=== PATIENT | male | born 1935 | race Caucasian/White ===

== ENCOUNTER 2018-03-13 19:27 | Observation (INO) | payer MEDICARE ==
[~2018-03-13] VITALS: Ht 165.1 cm; Wt 74.0 kg
[~2018-03-13 19:27] MED LIST: FOL1 PO; GLIPIZIDE5 PO; GLU5 PO; GLU500 PO; METFORMIN500 MG PO; PAN; PAN PO; PRE5 PO; PROS5 PO; SYMBICORT; VIT B12; VIT D; ZES20 PO; [UNRECOGNIZED DRUG - REMARK]
[2018-03-13 19:49] VITALS: Ht 165.1 cm; Wt 74.0 kg
[2018-03-13 20:44] LABS: PLATELET COUNT 144 x10^3mcL (130-400)
[2018-03-13 20:47] LABS: BASOPHIL % 0 % (0-2); RED CELL DISTRIBUTION WIDTH 16.3 % (11.5-14.5)
[2018-03-13 20:52] LABS: CALCIUM 9.2 mg/dL (8.5-10.1); CARBON DIOXIDE 28.1 mmol/L (21-32); CHLORIDE SERUM 100 mmol/L (98-107); CREATININE SERUM 1.2 mg/dL (0.7-1.3); GLUCOSE SERUM 178 mg/dL (74-106); POTASSIUM SERUM 4.7 mmol/L (3.5-5.1); SODIUM SERUM 135 mmol/L (136-145)
[2018-03-13 20:56] LABS: ALBUMIN 3.8 g/dL (3.4-5.0); ALKALINE PHOSPHATASE 55 U/L (46-116); ALT/SGPT 30 U/L (16-63); AST/SGOT 30 U/L (15-37); BILIRUBIN TOTAL 0.4 mg/dL (0.20-1.00); CHOLESTEROL 171 mg/dL (<200); TOTAL PROTEIN, SERUM 6.6 g/dL (6.4-8.2)
[2018-03-13 20:57] LABS: HDL CHOLESTEROL 67 mg/dL (40-60)
[2018-03-13] MEDS ORDERED: METFORMIN HCL1000 MG PO (22:06)
[2018-03-13] MEDS ORDERED: CREON PO (22:07)
[2018-03-13] MEDS ORDERED: FOL1 PO (22:07)
[2018-03-13] MEDS ORDERED: GLUCOTROL5 MG PO (22:08)
[2018-03-13] MEDS ORDERED: PREDNISONE2.5 MG PO (22:08)
[2018-03-13] MEDS ORDERED: PROS5 PO (22:08)
[2018-03-13 23:26] VITALS: BP 140/77
[2018-03-14 00:42] LABS: UA SPECIFIC GRAVITY 1.025 (1.005-1.035); microscopic required? YES; urine erythrocyte TRACE (NEGATIVE)
[2018-03-14 05:19] VITALS: BP 140/69
[2018-03-14 09:43] VITALS: BP 130/63
[2018-03-14 13:35] VITALS: BP 142/63
[2018-03-14 17:20] VITALS: BP 140/53
[2018-03-14 21:38] VITALS: BP 118/61
[2018-03-15 06:23] VITALS: BP 136/71
[2018-03-15 08:12] VITALS: BP 131/52
[2018-03-15] MEDS ORDERED: ZITHROMAX250 MG PO (08:24)
[2018-03-15 09:05] VITALS: BP 136/71
[2018-03-24] MEDS ORDERED: METFORMIN HCL1000 MG PO (22:43)
[2018-03-24] MEDS ORDERED: NATURE'S BLEND F1 MG PO (22:44)
[2018-03-24] MEDS ORDERED: FINASTERIDE5 M1 PO (22:45)
[2018-03-24] MEDS ORDERED: GLUCOTROL5 MG (22:46)
[2018-03-24] MEDS ORDERED: ALBUTEROL SULFAT3 ML (22:46)
[2018-03-24] MEDS ORDERED: SYMBICORT1 AE3 IH (22:46)
[2018-03-24] MEDS ORDERED: ATRUD (22:47)
[2018-03-25] MEDS ORDERED: PREDNISONE20 MG PO (12:36)
== END 2018-03-15 09:52 | disposition home or self-care (01) | DRG 189 ==
LOC: ED 19:27 → DU 21:58
PROVIDERS: Emergency Medicine; ADMIT Internal Medicine
DX: J96.01 Acute respiratory failure with hypoxia (principal); J44.1 Chronic obstructive pulmonary disease with (acute) exacerbation; J20.9 Acute bronchitis, unspecified; E11.9 Type 2 diabetes mellitus without complications; N40.0 Benign prostatic hyperplasia without lower urinary tract symptoms; Z79.84 Long term (current) use of oral hypoglycemic drugs
CPT/HCPCS: 87804; G0378; J0456; J0696; J1650; J2920; J2930; J7030; J7613; Q0092

== ENCOUNTER 2018-03-24 18:55 | Inpatient (IN) | payer MEDICARE | END 2018-03-25 13:38 | disposition home or self-care (01) | LOC: ED 18:55 → IC 22:47 → ED 18:55 → IC 22:47 → ED 18:55 → IC 22:47 → ED 18:55 → IC 22:22 | DX: E11.65 Type 2 diabetes mellitus with hyperglycemia (principal); E87.2 Acidosis; N17.9 Acute kidney failure, unspecified; J96.10 Chronic respiratory failure, unspecified whether with hypoxia or hypercapnia; E87.5 Hyperkalemia; I10 Essential (primary) hypertension; J44.9 Chronic obstructive pulmonary disease, unspecified; E83.42 Hypomagnesemia; Z68.25 Body mass index [BMI] 25.0-25.9, adult; E86.0 Dehydration ==